=== PATIENT | male | born 1965 | race Caucasian/White ===

== ENCOUNTER → 2022-01-06 | Outpatient (CLI) | payer OTHER, SELFPAY ==
--- NOTE | 2022-01-06 10:44 | STEWCON_ITS ---
Reason For Study: CHEST PAIN ATYPICAL Stress Results Protocol: Juan Carlos Protocol WITH DEFINITY Maximum Predicted HR: 162 bpm Target HR: 138 bpm % Maximum Predicted HR: 83 % DurationHeart Rate Stage (mm:ss) (bpm) BP Comment BASELINE 71 148/884 CC DEFINITY FOR ENTIRE TEST STAGE 1 3:00 116 182/94NO CHEST PAIN STAGE 2 3:00 134 220/90 RECVERY 89 152/88 Stress Duration: 6:00 mm:ss Maximum Stress HR: 134 bpm METS: 7 Baseline Echocardiogram Findings Stress Echo Wall motion Data Resting WM Intermediate WM Stress WM Resting Wall Motion Wall Motion Stress All segments Normal. All segments Hyperkinetic. Ejection Fraction 55 %. Ejection Fraction 65 %. Stress Results Heart rate response: Technically inadequate (percent predicted maximal heart rate less than 85%) heart rate response Blood pressure response: Resting hypertension-exaggerated response Cardiac rhythm: No obvious cardiac dysrhythmias Functional capacity: Average Stopped secondary to: Dyspnea; exaggerated blood pressure response. EKG Data Baseline ECG: Normal sinus rhythm. Peak exercise ECG: No obvious ECG changes. Symptoms with Stress No complaint of chest discomfort during exercise or recovery. ECHO/Stress Test Echo W/Contrast Interpretation Summary Contrast injection performed Negative (technically inadequate: Percent predicted maximal heart rate less wendy n 85%) stress echocardiogram Blood pressure response: Resting hypertension-exaggerated response Ordering Physician: Pradeep Wahl Referring Physician: Pradeep Wahl Performed By: Sai Babb RCS
== END | disposition home or self-care (01) ==
PROVIDERS: PCP Family Medicine; Referring Provider Family Medicine; Visit Provider Family Medicine
DX: R07.89 Other chest pain (principal); E78.5 Hyperlipidemia, unspecified
CPT/HCPCS: 93017; 93350; Q9957; A4216; C8928

== ENCOUNTER 2022-04-16 18:52 | Emergency (ER) | payer OTHER, SELFPAY ==
[2022-04-16 18:53] VITALS: BP 167/94; PULSE 94; RESP 18; TEMP 36.3; O2SAT 95; BMI 35.2
[2022-04-16 19:20] VITALS: BP 152/87; PULSE 86; RESP 18; O2SAT 95
[2022-04-16] MEDS: Aspirin 81 MG TAB.CHEW 324 MG PO (19:48)
[2022-04-16 19:51] VITALS: BP 160/80; PULSE 87; RESP 20; O2SAT 96
--- NOTE | 2022-04-16 19:53 | RAD_ITS ---
STUDY: X-RAY CHEST REASON FOR EXAM: Male, 57 years old. chest pain TECHNIQUE: Single AP portable view of the chest. COMPARISON: None. FINDINGS: The lungs are clear and expanded. There is no demonstrated pleural abnormality. Normal size heart. Normal mediastinum and anali. Normal visualized pulmonary arteries. Normal visualized aortic arch and descending thoracic aorta. Normal visualized thoracic spine. Normal visualized ribs, clavicles, and shoulders. There is no demonstrated abnormality of the visualized soft tissue structures of the upper abdomen. RAD/Chest 1 View (Portable) IMPRESSION: Normal x-ray examination of the chest. Electronically Signed: Allyson Eubanks MD at 20:12 EDT Reading Location ID and State: [id number] / Tel , Service support ,
[2022-04-16 19:56] LABS: Absolute Lymphocyte Count 2.84 X10^3/uL (0.83-4.51); Absolute Neutrophil Count 7.8 X10^3/uL (2.0-7.7); Basophil# 0.05 X10^3/uL; Basophil% 0.4 % (0-1); Eosinophil# 0.31 X10^3/uL; Eosinophils% 2.5 % (0-5); Hematocrit 43.7 % (40-54); Hemoglobin 14.5 g/dL (13.0-16.5); Lymphocyte # 2.84 X10^3/ul (0.83-4.51); Lymphocyte % 22.6 % (19-41); Mean Corp Hgb Conc 33.2 g/dL (32-36); Mean Corpuscular Hgb 31.1 pg (27.0-32.0); Mean Corpuscular Volume 93.8 fL (80-94); Mean Platelet Vol. 11.5 fl (6.2-12.0); Monocyte# 1.54 X10^3/uL; Monocyte% 12.2 % (0-10); NRBC Flagged by Analyzer 0 % (0-5); Neutrophil # 7.79 X10^3/uL (2.7-7.7); Neutrophil % 61.9 % (47-70); POSITIVE DIFFERENTIAL YES; Platelet Count 270 K/mm3 (150-450); RBC Distribution Width CV 12.4 % (11.6-14.6); Red Blood Count 4.66 M/mm3 (4.6-6.2); White Blood Count 12.6 K/mm3 (4.4-11.0)
[2022-04-16 20:10] LABS: D-Dimer Quantitative (DVT/PE) 0.43 FEU/ug/m (0.27-0.49)
[2022-04-16 20:13] LABS: Anion Gap 6 (5-15); BUN 19 mg/dL (7-18); BUN/Creat Ratio 19.6 RATIO (10-20); Chloride 108 mmol/L (98-107); Creatinine, Serum 0.97 mg/dL (0.70-1.30); EST Glomerular Filtration Rate 84 mL/min (>60); Est Glom Filt Rate - Afr Amer 102 mL/min (>60); Glucose 119 mg/dL (74-106); Potassium 3.5 mmol/L (3.5-5.1); Sodium Level 142 mmol/L (136-145); Troponin-I HS (w/2H Reflex) 5 pg/mL (3.0-78.0)
[2022-04-16 20:17] LABS: Differential Indicated SCAN CRITERIA MET
[2022-04-16 20:43] LABS: Differential Comment SCANNED
--- NOTE | 2022-04-16 21:41 | ED.VIS.CHEST ---
HPI History of Present Illness Chief Complaint: Chest Pain Narrative Narrative: Patient with past medical history of being a smoker, hypercholesterolemia, hypertension presents with chest tightness. While he has had it intermittently in the past, 2 hours prior to arrival he felt very short of breath with central chest tightness. He denies any fevers or chills. No cough. No nausea or vomiting. No diaphoresis. He denies any leg swelling. He states that he had a stress test performed as an outpatient 2 months ago which was negative. This was after he had gone to an outside facility and they were going to admit him for a stress test, but he preferred to go home. He continues to smoke approximately a pack a day. His does state that he has family history of early coronary artery disease in his relatives. He does have chest tightness on exertion at times. [facility] Medical History High cholesterol Allergy/AdvReac Type Severity Reaction Status Date / Time No Known Allergies Allergy Verified 04/16/22 18:55 Social History Smoking Status: Current every day smoker tobacco type: cigarettes ROS ROS ED ROS Narrative Constitutional: No fever, no chills. HEENT: No sore throat. No neck pain. No loss of vision. No rhinorrhea. Cardiovascular: Positive substernal chest tightness chest pain. No palpitations. No pedal edema. Respiratory: No cough, no shortness of breath. Abdominal: No abdominal pain. No nausea. No vomiting. Genitourinary: No dysuria. No hematuria. Musculoskeletal: No myalgias. No arthralgias. Neurologic: No headaches. No dizziness. No lightheadedness. Skin: No rash. No change in color. Psychiatric: No depression. No anxiety. EXAM Physical Exam Narrative Exam Narrative: Afebrile. Vital signs noted. HEENT: Normocephalic. Atraumatic. PERRL, EOMI. Neck soft and supple. No point tenderness or step off. Cardiovascular: Regular rate and rhythm. No murmurs, rubs, or gallops appreciated. Respiratory: No tachypnea. Lungs clear to auscultation bilaterally. Mildly prolonged expiratory phase. Gastrointestinal: Abdomen soft, nontender, with normoactive bowel sounds. No rebound or guarding. Neurological: Awake. Alert. Nonfocal, nonlateralizing. Skin: No rash. Normal color. No pallor. Musculoskeletal: No pedal edema. Full range of motion extremities. Const Vital Signs: 04/16/22 18:53 04/16/22 19:20 04/16/22 19:21 Temperature 97.3 F L Temperature Source Temporal Pulse Rate 94 86 Respiratory Rate 18 18 Respiratory Effort Short of Breath Blood Pressure 167/94 H 152/87 H Blood Pressure Mean 118 108 Pulse Ox 95 95 Oxygen Delivery Method Room Air Room Air 04/16/22 19:47 04/16/22 19:51 04/16/22 22:15 Temperature Temperature Source Pulse Rate 87 75 Respiratory Rate 20 H 18 Respiratory Effort Blood Pressure 160/80 H Blood Pressure Mean 106 Pulse Ox 96 Oxygen Delivery Method Room Air Room Air 04/16/22 22:27 Temperature Temperature Source Pulse Rate 81 Respiratory Rate 20 H Respiratory Effort Blood Pressure 143/84 H Blood Pressure Mean 103 Pulse Ox 94 Oxygen Delivery Method Room Air Heart Score History: Slightly/Non-Suspicious ECG: Normal Age: >45 - <65 years Risk Factors: >/= 3 Risk Factors or History of CAD Troponin: </= Normal Limit Score: 3 MDM MDM MDM Narrative Medical decision making narrative: Chest pain work-up was pursued. I do feel that he probably has underlying COPD with his chest tightness. He has a slightly elevated white count of 12.6 which think is nonspecific, normal hemoglobin of 14.5. Platelet count normal at 270. D-dimer normal at 0.43. Electrolyte panel shows chloride elevated at 108, otherwise unremarkable except for BUN of 19 with a normal creatinine of 0.9. Initial high-sensitivity troponin is negative at 5. Chest x-ray in 1 view interpreted by myself shows no evidence of acute process, no pneumothorax or infiltrate. He will be given an albuterol inhaler 2 puffs inhaled to see if this helps. His pulse ox is 95 to 96% on room air. If he has a negative delta troponin, I do feel that he would be able to be discharged safely home with follow-up to his primary care physician/provider for possible referral to a thermodynamics teacher. His delta troponin is negative with his repeat troponin of 6. Smoking cessation was discussed. Upon repeat examination after his MDI, he states he feels improved. I do feel he may have underlying COPD. Regardless, I feel he can be discharged safely home with follow-up. Return instructions to the emergency department were reviewed. Disposition is discharged home in stable condition. Lab Data Attestation: I reviewed the patient's lab results. Labs: Laboratory Results - last 24 hr 04/16/22 04/16/22 04/16/22 19:40 19:40 19:45 WBC 12.6 H RBC 4.66 Hgb 14.5 Hct 43.7 MCV 93.8 MCH 31.1 MCHC 33.2 RDW Std Deviation 43.0 RDW Coeff of Shannon 12.4 Plt Count 270 MPV 11.5 Immature Gran % (Auto) 0.400 Neut % (Auto) 61.9 Lymph % (Auto) 22.6 [place] % (Auto) 12.2 H Eos % (Auto) 2.5 Baso % (Auto) 0.4 Absolute Neuts (auto) 7.8 H Absolute Lymphs (auto) 2.84 Nucleated RBC % 0 Differential Comment SCANNED Diff Path Review May foll D-Dimer Quant (PE/DVT) 0.43 Sodium 142 Potassium 3.5 Chloride 108 H Carbon Dioxide 28.0 Anion Gap 6 BUN 19 H Creatinine 0.97 Estim Creat Clear Calc 90.00 Est GFR (MDRD) Af Amer 102 Est GFR (MDRD) Non-Af 84 BUN/Creatinine Ratio 19.6 Glucose 119 H Calcium 9.0 Troponin I High Sens 5 04/16/22 21:50 WBC RBC Hgb Hct MCV MCH MCHC RDW Std Deviation RDW Coeff of Shannon Plt Count MPV Immature Gran % (Auto) Neut % (Auto) Lymph % (Auto) [place] % (Auto) Eos % (Auto) Baso % (Auto) Absolute Neuts (auto) Absolute Lymphs (auto) Nucleated RBC % Differential Comment Diff Path Review D-Dimer Quant (PE/DVT) Sodium Potassium Chloride Carbon Dioxide Anion Gap BUN Creatinine Estim Creat Clear Calc Est GFR (MDRD) Af Amer Est GFR (MDRD) Non-Af BUN/Creatinine Ratio Glucose Calcium Troponin I High Sens 6 Radiography Diagnostic Testing: Clinical Impression(s) from Imaging Studies Chest X-Ray 04/16/22 19:53 IMPRESSION: Normal x-ray examination of the chest. Electronically Signed: Allyson Eubanks MD at 20:12 EDT Reading Location ID and State: [id number] / Tel , Service support , Discharge Plan Triage Chief Complaint: Chest Pain ED Provider: Chano Arauz Dx/Rx/DC Orders Clinical Impression: Chest tightness, SOB (shortness of breath), AN (dyspnea on exertion) Instructions: ED Chest Pain, Noncardiac, ED Dyspnea Primary Care Provider: Pradeep Wahl Referrals: Pradeep Wahl MD [Primary Care Provider] - 3-5 Days if not improving Activity Restrictions/Additional Instructions: Stop Smoking!!!! Use your inhaler 2 puffs inhaled every 4-6 hours. Follow up with your physician for possible referral to pulmonology. Disposition Disposition: Home, Self Care
[2022-04-16 21:51] LABS: Reflex Troponin-HS? (from REC) Y
[2022-04-16] MEDS: Albuterol Sulfate 8 gm Inhaler (60 puffs) 2 PUFF INHALATION (22:14)
[2022-04-16 22:15] VITALS: PULSE 75; RESP 18
[2022-04-16 22:21] LABS: Troponin-I HS 6 pg/mL (3.0-78.0)
[2022-04-16 22:27] VITALS: BP 143/84; PULSE 81; RESP 20; O2SAT 94
[2022-04-17 13:11] LABS: Pathologist Review Reviewed
== END 2022-04-16 22:54 | disposition home or self-care (01) ==
PROVIDERS: Emergency Provider Emergency Medicine; PCP Family Medicine; Visit Provider Emergency Medicine
DX: R07.89 Other chest pain (principal); F17.210 Nicotine dependence, cigarettes, uncomplicated; I10 Essential (primary) hypertension; E78.00 Pure hypercholesterolemia, unspecified; R06.02 Shortness of breath
CPT/HCPCS: 71045; 80048; 84484; 85025; 85379; 93005; 94640; 99283; A4216

== ENCOUNTER → 2022-05-27 | Outpatient (CLI) | payer OTHER, SELFPAY ==
--- NOTE | 2022-05-27 15:26 | CT_ITS ---
STUDY: LOW DOSE CT LUNG CANCER SCREENING REASON FOR EXAM: Male, 57 years old. NICOTINE DEPENDENCE. 1PPD X 40 + YEARS RADIATION DOSAGE (If Supplied By Facility): CTDIvol = ( 4.02 ) mGy, DLP = ( 141.45 ) mGycm TECHNIQUE: No contrast was administered. Low dose technique was utilized (average mAS-38 and kVp 120). 1.25 mm axial source images with a slice interval of 1.25-mm were reconstructed in lung windows. 2.5 mm axial source images with a slice interval of 2.5-mm were reconstructed in lung windows. 5.0 mm axial source images with a slice interval of 5.0-mm were reconstructed in soft tissue windows. COMPARISON: None. NODULES: Nodule #: 1 Density: Groundglass Lung location: Central right lung apex : 3.2 cm from pleura Location in series: Series Number: 2 Image: 54 Size - D1 x D2 mm: 3x3mm: 2mm average diameter Margin: Circumscribed Shape: Round Calcification: None Fat: None Temporal comparison: NA Nodule #: multiple Density: Groundglass Lung location: Multiple additional scattered lateral right and left upper lung 1 to 2 mm subpleural rounded nodule without calcification or fat Temporal comparison: NA Parenchyma: Mild diffuse perihilar bronchial thickening. No consolidation, effusion, or pneumothorax. Endobronchial lesion: None Aorta: Mild atherosclerosis ascending aorta at the upper limits of normal caliber Cardiac: Mild coronary calcifications. No cardiomegaly or pericardial effusion. Pulmonary artery: No gross main pulmonary arterial enlargement. Mediastinal nodes: No mediastinal or bulky hilar adenopathy CT/Low Dose CT Lung Screening IMPRESSION: Multiple bilateral upper lung 1 to 3 mm indistinct groundglass subpleural nodules, most commonly sequela of prior granulomatous disease. Overall Lung-RAD 2: Benign appearance or behavior. Mild bilateral peribronchial thickening as can be seen with acute or chronic bronchitis. RECOMMENDATION: Continue annual screening with low dose CT in 12 months IMPORTANT NOTES FOR USE: ACR Lung-RADS Version 1.1 Assessment Categories Release Date: 2018 Category: Coded 0-4 bases on nodule(s) with highest degree of suspicion. Negative screen is defined as categories 1 and 2; a positive screen is defined as categories 3 and 4. Category 3 and 4A nodules that are unchanged on interval CT should be coded as category 2, and individuals returned to screening in 12 months. Category 4X: Category 3 or 4 nodules with additional imaging findings that increase the suspicion of lung cancer, such as spiculation, GGN that doubles in size in 1 year, enlarged lymph notes, etc. Category Modifiers: S (significant finding unrelated to lung cancer) Electronically Signed: Zechariah Ashton MD at 4:40 EST ,
== END | disposition home or self-care (01) ==
LOC: CT 15:25
PROVIDERS: PCP Family Medicine; Referring Provider Registered Nurse; Visit Provider Registered Nurse
DX: Z12.2 Encounter for screening for malignant neoplasm of respiratory organs (principal); F17.210 Nicotine dependence, cigarettes, uncomplicated
CPT/HCPCS: 71271

== ENCOUNTER 2023-05-07 18:36 | Emergency (ER) | payer OTHER, SELFPAY ==
[2023-05-07 18:37] VITALS: BP 162/92; PULSE 96; RESP 16; TEMP 36.2; O2SAT 96; BMI 35.5
[2023-05-07] MEDS: Fluorescein 1 MG STRIP 1 STRIP OPHTHALMIC (20:41)
[2023-05-07] MEDS: Tetracaine 0.5% Ophthalmic Bottle 1 DRP OPHTHALMIC (20:43)
--- NOTE | 2023-05-07 20:48 | EDS_ITS ---
HPI History of Present Illness Chief Complaint: Eye Problem Informant: patient Narrative Narrative: Patient is a 58-year-old male that wears corrective lenses (does not wear contacts) presenting with injury to his left eye. He was sweeping his patio and went to move a plant. He bent over and the plant had spiky leaves. One of the leaves poked him in the left eye. He had immediate pain. He has some associated blurred vision. He came in for further evaluation due to ongoing pain. States he had scratches to his eye before to feel similar. Is also worried that maybe there is a piece of plant matter still in his eye. No other complaints or concerns at this time. Only sees an heavy machinery operator at the [facility]. Does not have an emergency service worker. PFSH [facility] Medical History High cholesterol Home Medications ciprofloxacin HCl 0.3 % eye drops See Rx Instructions EACH EYE .COMPLEX #5 mL 05/07/23 [Rx Last Taken Unknown] fenofibrate 160 mg tablet 160 mg PO DAILY 05/07/23 [History Last Taken Unknown] lisinopril 20 mg-hydrochlorothiazide 25 mg tablet 1 tab PO DAILY 05/07/23 [History Last Taken Unknown] rosuvastatin 20 mg tablet 20 mg PO DAILY 05/07/23 [History Last Taken Unknown] Allergy/AdvReac Type Severity Reaction Status Date / Time No Known Allergies Allergy Verified 05/07/23 18:37 Social History Smoking Status: Current every day smoker tobacco type: cigarettes ROS ROS ED Constitutional Constitutional ED: Denies chills or fever(s) Eyes Eyes: Reports blurry vision and other Details: Left eye pain ENT ENT ED: Denies ear pain or rhinorrhea Gastrointestinal Gastrointestinal: Denies nausea or vomiting Integumentary Denies Abrasions or rash Neurologic Neurologic: Denies headache(s) Hematologic/Lymphatic Hematologic/Lymphatic: Denies easy bleeding or easy bruising EXAM Physical Exam Const Vital Signs: 05/07/23 18:37 Temperature 97.2 F L Temperature Source Temporal Pulse Rate 96 Respiratory Rate 16 Blood Pressure 162/92 H Blood Pressure Mean 115 Pulse Ox 96 Oxygen Delivery Method Room Air Positive well nourished and well developed General Appearance ED: well developed and NAD HEENT atraumatic Nose: external nose normal Eyes Eyes Narrative: Mild conjunctival injection bilateral eyes. No obvious injury to the eyelids. On the left upper eyelid, lateral aspect there is a chalazion present. No foreign body appreciated underneath the eyelid. On fluorescein exam patient has a larger corneal abrasion at the 1 o'clock position over the pupil as well as a very thin linear abrasion at the 7 o'clock position over the iris. Negative Cipriano sign. Onset lamp exam anterior chambers are deep and quiet. No findings distant with iritis on exam. Pupils equal round reactive to light. EOMI. Neck supple Cardio regular rate and regular rhythm Neuro oriented x3 Sensorium / Orientation: alert Skin no wounds Lesions: no lesions MDM MDM MDM Narrative Medical decision making narrative: Patient is evaluated for injury to his left thigh. He has corneal abrasion noted to the eye. This treated with tetracaine with resolve meant of his pain temporarily in the ER. He is started on erythromycin ointment to use at night. He also given a prescription for ciprofloxacin drops to use during the day for convenience. Counseled that he also has a chalazion and that can be followed up with ophthalmology. Encouraged to follow-up with ophthalmology early next week. Given return precautions to the ER. Is given tetracaine drops to use over the next 24 hours. Counseled that excessive use of it can increase the risk of corneal ulceration and complications. Also counseled to take NSAIDs as needed for pain control. Uncorrected visual acuity is OD 20/70 and OS 20/70. Patient discharged home in stable and improved condition. Differential includes corneal abrasion, retained foreign body to the eye, open globe Discharge Plan Triage Chief Complaint: Eye Problem ED Provider: Felipa Alfaro Dx/Rx/DC Orders Clinical Impression: Abrasion of cornea, left Instructions: ED Corneal Abrasion Prescriptions: New ciprofloxacin HCl 0.3 % drops See Rx Instructions .ROUTE .COMPLEX Qty: 5 0RF Rx Instructions: put 1-2 drps in affected eye(s) every 2hr up to 8 times/day x2days; then 4 times/day x5days No Action rosuvastatin 20 mg tablet 20 mg PO DAILY Patient Comments: take 1 tablet by mouth every evening fenofibrate 160 mg tablet 160 mg PO DAILY Patient Comments: take 1 tablet by mouth once daily lisinopril-hydrochlorothiazide 20-25 mg tablet 1 tab PO DAILY Patient Comments: take 1 tablet by mouth once daily Primary Care Provider: Pradeep Wahl Referrals: Richard Nevarez MD [Med Staff - Active Staff] - 1-2 Days if not improving Pradeep Wahl MD [Primary Care Provider] - Activity Restrictions/Additional Instructions: Apply small ribbon of the antibiotic ointment (erythromycin ointment) nightly for the next 5 days. During the day use the eyedrops prescribed as directed. Try to avoid rubbing your eye. You may use the tetracaine drops every 4 hours for the next 24 hours. Do not use it longer than that. He may also take [id number] ibuprofen to help with pain. If you do not feel you are improving please follow-up with ophthalmology. I suspect you also have something called a chalazion which is the bump on your left upper eyelid. This can be followed up with ophthalmology as well. Disposition Disposition: Home, Self Care
[2023-05-07] MEDS: Erythromycin Ophthalmic (NSY) 1 GM OPTH.TUBE 1 APPLIC LEFT EYE (20:55)
== END 2023-05-07 21:01 | disposition home or self-care (01) ==
PROVIDERS: Emergency Provider Emergency Medicine; PCP Family Medicine; Visit Provider Emergency Medicine
DX: S05.02XA Injury of conjunctiva and corneal abrasion without foreign body, left eye, initial encounter (principal); F17.210 Nicotine dependence, cigarettes, uncomplicated; E78.00 Pure hypercholesterolemia, unspecified; Z79.899 Other long term (current) drug therapy; X58.XXXA Exposure to other specified factors, initial encounter
CPT/HCPCS: 99283

== ENCOUNTER → 2023-05-13 | Outpatient (CLI) | payer OTHER, SELFPAY ==
--- NOTE | 2023-05-13 | RAD_ITS ---
EXAM: XR Spine Lumbar 2 or 3 Views INDICATION: Male, 58 years old. Low back pain TECHNIQUE: AP, lateral, and coned-down lateral views COMPARISON: None FINDINGS: There are 6 nonrib-bearing lumbar vertebral segments. The alignment of the lumbar spine demonstrates mild straightening of the normal lordosis. There is mild dextro scoliosis centered at L3-L4. There is no vertebral body fracture. There is no pars defect. There is mild to moderate degenerative change of the intervertebral disc spaces from L2 through S1. There is mild to moderate degenerative change of the facet joints from L4 4 through S1. Visualized ribs are unremarkable. Visualized pelvis is unremarkable. No paraspinal soft tissue densities. RAD/Lumbar Spine 2 or 3 Views IMPRESSION: 1. No acute abnormality of the lumbar spine 2. Mild to moderate multilevel degenerative disc and facet disease Electronically Signed: Hector Zarco MD at 1:09 EDT ,
--- NOTE | 2023-05-13 16:50 | RAD_ITS ---
INDICATION: PAIN EXAMINATION/TECHNIQUE: X-RAY - RIGHT XR Knee 1 or 2 Views 2 VIEWS COMPARISON: FINDINGS: No acute fracture or dislocation. No destructive bone changes. Joint spaces are well-maintained. Normal alignment. Soft tissues are unremarkable. No radiopaque foreign body or soft tissue gas. RAD/Knee 1 or 2 Views IMPRESSION: Negative. Electronically Signed: Allyson Eubanks MD at 23:58 EDT Reading Location ID and State: [id number] / Tel , Service support ,
== END | disposition home or self-care (01) ==
LOC: RAD 16:42
PROVIDERS: PCP Family Medicine; Referring Provider Registered Nurse; Visit Provider Registered Nurse
DX: M25.561 Pain in right knee (principal); G89.29 Other chronic pain; M47.817 Spondylosis without myelopathy or radiculopathy, lumbosacral region
CPT/HCPCS: 72100; 73560

== ENCOUNTER 2023-11-29 10:01 | Emergency (ER) | payer OTHER, SELFPAY ==
[2023-11-29 10:02] VITALS: BP 129/87; PULSE 97; RESP 18; TEMP 35.9; O2SAT 100; BMI 36.3
--- NOTE | 2023-11-29 10:08 | EDS_ITS ---
HPI History of Present Illness Chief Complaint: Back Onset/Context/Timing Onset: Weeks (2) Context: Gradual Onset Timing: Continuous Quality: Aching Location: Lumbar, Buttock and Left Leg Worsened by: improves with Nothing Relieved by: Nothing Associated Symptoms Associated Symptoms: Radiation to Left Leg; Negative for Numbness, Tingling, Radiation to Right Leg, Fever, Abdominal Pain, Dysuria, Unable to Ambulate, Unable to Transfer, Urinary Retention, Urinary Incontinence, Constipation or Fecal Incontinence Narrative Narrative: Patient presents with back pain that has been getting worse over the past 2 weeks. Patient states it is gradually getting worse. Patient states it is constant. Patient describes it as aching. Patient states it is over the lower lumbar area and radiates down his left leg. Patient states nothing makes it bet ter and nothing makes it worse. Patient states he was given a prescription for Flexeril recently. Patient states he took 2 10 mg tablets this morning with no relief. Patient denies any paresthesias or weakness. Patient denies any bowel or bladder changes. Patient denies any saddle anesthesia. [facility] Medical History (Updated 11/29/23 @ 10:[address] Nikita Wilson, DO) Hypertension High cholesterol Home Medications ?Medication ?Instructions ?Recorded ?Last Taken ?Type fenofibrate 160 mg tablet 160 mg PO DAILY 05/07/23 Unknown History lisinopril 20 1 tab PO DAILY 05/07/23 Unknown History mg-hydrochlorothiazide 25 mg tablet rosuvastatin 20 mg tablet 20 mg PO DAILY 05/07/23 Unknown History albuterol sulfate 90 mcg/actuation 2 puff inhalation 4X/DAY PRN PRN 11/29/23 Unknown History aerosol inhaler wheezing alcohol swabs 1 pad topical TID 11/29/23 Unknown History budesonide-formoterol HFA 80 2 puff inhalation BID 11/29/23 Unknown History mcg-4.5 mcg/actuation aerosol inhaler (Symbicort) diclofenac sodium 75 mg 75 mg PO BID PRN PRN pain 11/29/23 Unknown History tablet,delayed release escitalopram oxalate 5 mg tablet 5 mg PO DAILY 11/29/23 Unknown History hydrocodone-acetaminophen 5-325mg 1 tab PO Q6H PRN PRN Pain 3 days 11/29/23 Unknown Rx 5mg-325mg #10 TABLETS methocarbamol 750 mg tablet 750 mg PO TID 11/29/23 Unknown History methylprednisolone 4 mg tablets in mg UD 11/29/23 Unknown History a dose pack needle (disp) 23 gauge 23 gauge x 11/29/23 Unknown History 1 1/2 (Hypodermic [place]) testosterone cypionate 200 mg/mL 200 mg IM 11/29/23 Unknown History intramuscular oil Allergy/AdvReac Type Severity Reaction Status Date / Time No Known Allergies Allergy Verified 05/07/23 18:37 Surgical History no surgical history no surgical history Social History Smoking Status: Current every day smoker tobacco type: cigarettes ROS ROS ED Constitutional Constitutional ED: Denies chills or fever(s) Eyes Eyes: Denies blurry vision or change in vision ENT ENT ED: Denies rhinorrhea or sore throat Cardiovascular Cardiovascular: Denies chest pain or palpitations Respiratory/Chest Respiratory/Chest: Denies cough or dyspnea Gastrointestinal Gastrointestinal: Denies nausea or vomiting Genitourinary Genitourinary ED: Denies dysuria or hematuria Musculoskeletal Musculoskeletal: Reports back pain; Denies neck pain Integumentary Denies abscess or rash Neurologic Neurologic: Denies headache(s) or weakness Allergic/Immunologic Allergic/Immunologic ED: Denies mouth swelling or urticaria EXAM Physical Exam Const Vital Signs: 11/29/23 10:02 Temperature 96.6 F L Temperature Source Temporal Pulse Rate 97 Respiratory Rate 18 Blood Pressure 129/87 H Blood Pressure Mean 101 Pulse Ox 100 Oxygen Delivery Method Room Air Positive well nourished and well developed General Appearance ED: well developed and NAD HEENT Reports moist mucous membranes Neck supple and no JVD Back/Spine Back/Spine Narrative: There is tenderness and spasm of the lumbar paraspinal muscles. There is tenderness over the sciatic notch. There is no edema or ecchymosis. There is no bony crepitance or step-off. There is no midline tenderness. Range of motion was limited in all motions of the lumbar spine secondary to pain. Strength is 5/5 bilaterally in the lower extremities. There are no sensory deficits noted. Deep tendon reflexes are 2/4 bilaterally in the lower extremities. Straight leg raises were negative bilaterally. Lumbar Spine / Lower Back: ROM limited and straight leg raise negative bilaterally Neuro oriented x3 and no sensory deficits noted Sensorium / Orientation: alert Motor Exam: strength 5/5 throughout Deep Tendon Reflexes: Rt Patellar (L4): 2+, Lt Patellar (L4): 2+, Rt Ankle (S1): 2+ and Lt Ankle (S1): 2+ Deep Tendon Reflexes Back: Rt Patellar (L4): 2+, Lt Patellar (L4): 2+, Rt Ankle (S1): 2+ and Lt Ankle (S1): 2+ Psych mental status grossly normal Skin no rashes or lesions noted MDM MDM MDM Narrative Medical decision making narrative: Smoking cessation was discussed. Patient was advised that this is most likely sciatic inflammation. Patient was given an injection of morphine here. Patient was given a prescription for [place]. Patient was instructed to continue the Flexeril as previously prescribed. Patient was instructed to follow-up with his primary care physician in 5 to 7 days. Patient was advised that he may need physical therapy. Patient was advised he may need a referral for orthopedic spine surgery. Patient was advised that he may need an MRI in the future. Patient was advised that this will be up to his primary care physician. Patient understood and was agreeable with the plan. All questions were answered. Discharge Plan Triage Chief Complaint: Back ED Provider: Nikita Wilson Dx/Rx/DC Orders Clinical Impression: Sciatica of left side, Tobacco use disorder Instructions: ED Sciatica Prescriptions: New hydrocodone-acetaminophen 5-325 mg tablet 1 tab PO Q6H PRN PRN (Reason: Pain) 3 Days Qty: 10 0RF No Action rosuvastatin 20 mg tablet 20 mg PO DAILY Patient Comments: take 1 tablet by mouth every evening fenofibrate 160 mg tablet 160 mg PO DAILY Patient Comments: take 1 tablet by mouth once daily lisinopril-hydrochlorothiazide 20-25 mg tablet 1 tab PO DAILY Patient Comments: take 1 tablet by mouth once daily ciprofloxacin HCl 0.3 % drops See Rx Instructions .ROUTE .COMPLEX Qty: 5 0RF Rx Instructions: put 1-2 drps in affected eye(s) every 2hr up to 8 times/day x2days; then 4 times/day x5days Primary Care Provider: Camryn Brown NP Referrals: Camryn Brown NP, [facility] [Primary Care Provider] - 3-5 Days Print Language: Jordanian Disposition Disposition: Home, Self Care
[2023-11-29] MEDS: Morphine 4 MG/ML Syringe IM (10:33)
[2023-11-29 10:52] VITALS: BP 135/78; PULSE 89; RESP 18; TEMP 36.2; O2SAT 100
== END 2023-11-29 10:53 | disposition home or self-care (01) ==
LOC: ED 10:41
PROVIDERS: Emergency Provider Emergency Medicine; PCP Registered Nurse; Visit Provider Emergency Medicine
DX: M54.42 Lumbago with sciatica, left side (principal); I10 Essential (primary) hypertension; E78.00 Pure hypercholesterolemia, unspecified; F17.210 Nicotine dependence, cigarettes, uncomplicated; Z79.899 Other long term (current) drug therapy
CPT/HCPCS: 96372; 99282